=== PATIENT | female | born 1980 | race Caucasian/White ===

== ENCOUNTER 2017-09-15 10:27 | Observation (INO) ==
[2017-09-15] MEDS ORDERED: Ondansetron 4 MG/2 ML VIAL IVP PRN ×2 (11:04→18:07)
[2017-09-15] MEDS ORDERED: *HR* OxyCODONE/APAP 5/325 TABLET PO PRN ×2 (11:07→18:07)
[2017-09-15] MEDS ORDERED: Acetaminophen 325 MG TABLET PO PRN ×2 (11:07→18:07)
[2017-09-15] MEDS ORDERED: *HR* LORazepam 2 MG/ML VIAL IVP PRN ×2 (11:08→18:07)
--- NOTE | 2017-09-15 11:12 | General Surg History&Physical ---
Date of Encounter: 09/15/17 Time of Encounter: 10:45 Assessment and Plan (1) Acute appendicitis Current Visit: No Status: Acute The assessment and plan as outlined above was discussed with the patient and/or family members who expressed understanding and agreement. All questions were answered. NPO IV fluids- 75ml/hour IV antibiotics- Zosyn Supportive care and pain control Incentive Spirometer every 1 hour while awake Risks, benefits, alternatives, expected outcomes have been reviewed with the patient and she is in agreement to proceed with a laparoscopic appendectomy with Dr. Shane in the next 24 hours. Qualifiers: Acute appendicitis type: with localized peritonitis Qualified Code(s): K35.3 - Acute appendicitis with localized peritonitis (2) Anxiety and depression Current Visit: Yes Status: Chronic The assessment and plan as outlined above was discussed with the patient and/or family members who expressed understanding and agreement. All questions were answered. Ativan prn for anxiety while NPO Will resume home medication regimen after surgery (3) GERD (gastroesophageal reflux disease) Current Visit: Yes Status: Chronic The assessment and plan as outlined above was discussed with the patient and/or family members who expressed understanding and agreement. All questions were answered. PPI therapy daily Qualifiers: Esophagitis presence: esophagitis presence not specified Qualified Code(s) : K21.9 - Gastro-esophageal reflux disease without esophagitis (4) Asthma Current Visit: No Status: Chronic The assessment and plan as outlined above was discussed with the patient and/or family members who expressed understanding and agreement. All questions were answered. Duonebs every 6 hours prn shortness of breath IS every 1 hour while awake Qualifiers: Asthma severity: unspecified severity Asthma persistence: unspecified Asthma complication type: unspecified Qualified Code(s): J45.909 - Unspecified asthma, uncomplicated (5) DVT prophylaxis Current Visit: Yes Status: Acute The assessment and plan as outlined above was discussed with the patient and/or family members who expressed understanding and agreement. All questions were answered. EPCDs to bilateral lower extremities Ambulate hallways TID History of Present Illness Chief complaint: Abdominal pain HPI: Ms. Miranda is a 36 year old female who presented to the [place] emergency department with complaints of acute onset of right lower quadrant abdominal pain. She states that her pain started last evening. She states that the pain has slowly progressed and is now constant and severe. She describes it as a sharp and stabbing pain in her right lower quadrant and suprapubic region. She states that she has never had pain like this in the past. She denies any fevers or chills. She does admit to nausea and vomiting last evening. She denies any hematemesis or coffee-ground emesis. She admits to diarrhea last evening but denies any melena or hematochezia. She states that she is voiding without difficulty. She does admit to shortness of breath. She denies any chest pains. She has had a CAT scan evaluation which is consistent with acute appendicitis. The patient has been transferred to [facility] for further treatment. Past Med Surg Social Fam HX - Past Medical History Source: patient Medical history: asthma, GERD Psychiatric history: anxiety, depression - Past Surgical History Surgical History: , hysterectomy, JANIS/BSO, other (Laparoscopy, eardrum reconstruction; tubal ligation) - Social History Smoking Status: Never smoker Smokeless Tobacco Status: No Alcohol use: none Drug use: none Current living situation: Home - Independent Activity Level: Independent ambulation - Family History Mother Living Status: Still Living Hx Family Cardiac Disorders: Yes (HTN) Hx Family Endocrine Disorder: Yes (Diabetes) Hx Family Neurologic Disorders: Yes (CVA) Father Living Status: Still Living Hx Family Cardiac Disorders: Yes (HTN) Sister Living Status: Still Living Hx Family Cardiac Disorders: Yes (HTN) Hx Family Endocrine Disorder: Yes (Diabetes, Thyroid disease) Medications and Allergies Loratadine [Allergy Relief] 10 mg PO DAILY 01/02/17 [History] Gabapentin [Gralise] 300 mg PO DAILY 03/20/17 [History] Omeprazole [PriLOSEC] 20 mg PO DAILY 05/04/17 [History] clonazePAM [Klonopin] 0.5 mg PO BID 05/04/17 [History] Albuterol Sulfate [Ventolin Hfa] 2 puff IH QID 09/15/17 [History] Amoxicillin/Clavulanate [Augmentin] 1 tab PO BID 09/15/17 [History] Benzonatate [Tessalon] 1 cap PO TID PRN 09/15/17 [History] PARoxetine HCl [Paroxetine HCl] 20 mg PO DAILY 09/15/17 [History] 3 Allergy/AdvReac Type Severity Reaction Status Date / Time No Known Allergies Allergy Verified 09/09/17 13:42 Review of Systems All systems PM: reviewed and no additional remarkable complaints except as stated (in the HPI) All systems PM: A 10-system review of systems was performed and is negative for pertinent findings except as documented above in the HPI. General Surgery Exam Initial Vital Signs Temp Pulse Resp BP Pulse Ox 97.9 F 69 18 111/71 98 09/15/17 10:29 09/15/17 10:29 09/15/17 10:29 09/15/17 10:29 09/15/17 10:29 - General physical appearance well developed, well nourished, no distress - Eyes normal ocular movement - ENT normal mucosa, atraumatic, normocephalic - Neck trachea midline - Respiratory normal respiratory effort, clear to auscultation - Cardiovascular Cardiovascular exam: Present: RRR - Abdomen Abdomen general surgery: Present: bowel sounds present, soft, tender Abdominal Tenderness: Present: RLQ, suprapubic - Integumentary Integumentary general surgery: Present: warm and dry - Neurologic Present: CN 2-12 grossly intact - Psychiatric Psychiatric general surgery: Present: appropriate, oriented to person, oriented to place, oriented to time, speech is normal, memory intact Results - Labs All other labs normal. - Imaging CT scan - abdomen: report reviewed CT scan - pelvis: report reviewed - Attending Attestation For this encounter, I have reviewed the [place] or PA documentation, treatment plan, and medical decision making; and I have had face to face time with this patient.
[2017-09-15] MEDS ORDERED: 0.9 % Sodium Chloride 1,000 ML IVC SCH ×2 (11:15→18:07)
[2017-09-15] MEDS ORDERED: Ipratropium/Albuterol Neb 3 ML IH PRN ×2 (11:16→22:00)
[2017-09-15] MEDS ORDERED: Piperacillin/Tazobactam 3.375 GM in Water for inj. (sterile) 20 ML IVP ONE (11:21)
[2017-09-15] MEDS ORDERED: *HR* HYDROmorphone 2 MG/ML SYRINGE ONE (11:24)
[2017-09-15] MEDS: *HR* HYDROmorphone (PF) 1 MG/ML SYRINGE IVP PRN ×2 (11:28→15:02)
[2017-09-15] MEDS ORDERED: Piperacillin/Tazobactam 3.375 GM/200 ML BAG IVPB SCH (12:00)
--- NOTE | 2017-09-15 15:47 | Anesthesia Evaluation PreOp ---
Date of Encounter: 09/15/17 Time of Encounter: 16:16 - Past History Planned Operation: Laparoscopic Appendectomy Cardiac History: Denies any Significant Hx Pulmonary History: Asthma CAN REPAIRER History: Denies Any Significant HX Other Medical History: GERD, Other (anxiety/depression) Anesthesia History: No Prior Anesthetic Complications, Past Anesthesia ( hysterectomy) Alcohol Use: none Drug use: none Medications and Allergies Loratadine [Allergy Relief] 10 mg PO DAILY 01/02/17 [History] Gabapentin [Gralise] 300 mg PO DAILY 03/20/17 [History] Omeprazole [PriLOSEC] 20 mg PO DAILY 05/04/17 [History] clonazePAM [Klonopin] 0.5 mg PO BID 05/04/17 [History] Albuterol Sulfate [Ventolin Hfa] 2 puff IH QID 09/15/17 [History] Amoxicillin/Clavulanate [Augmentin] 1 tab PO BID 09/15/17 [History] Benzonatate [Tessalon] 1 cap PO TID PRN 09/15/17 [History] PARoxetine HCl [Paroxetine HCl] 20 mg PO DAILY 09/15/17 [History] 3 Allergy/AdvReac Type Severity Reaction Status Date / Time No Known Allergies Allergy Verified 09/09/17 13:42 - Meds/Allergy Pre-op Review Medications Reviewed: Yes Allergies Reviewed: Yes Beta Blockers on Current Med List: No Anesthesia Results - Labs Laboratory Tests 09/15/17 09/15/17 08:16 08:16 WBC 16.0 H Hgb 11.8 Hct 35.7 Plt Count 310 Sodium 139 Potassium 3.4 L BUN 8 Creatinine 0.78 Anesthesia Exam Vital Signs/O2 Sat, Most Current Temp Pulse Resp BP Pulse Ox 97.5 F L 61 18 107/69 93 09/15/17 14:37 09/15/17 14:37 09/15/17 14:37 09/15/17 14:37 09/15/17 14:37 Height: 5'4''/1.63 m Weight: 169 lbs/77.1 kg NPO (# of Hours): 8 Pain Scale: 3 Pain Scale Used: Numeric (1 - 10) - HEENT Pupil (Motor): EOMI Mallampati: II Teeth: Normal Oral Opening: Greater than 3 - CAN REPAIRER LOC: Oriented CAN REPAIRER Motor: Normal RUE, Normal LUE, Normal RLE, Normal LLE, Normal Face CAN REPAIRER Sensory: Normal: RUE, LUE, RLE, LLE, Face - Cardiac Rhythm: Regular Murmur: None - Pulmonary Breath Sounds: bilateral Clear Respiratory Effort: Symmetrical Anesthesia Assess/Plan ASA Score: 2 Modified Stephanie Scale for Level of Consciousness: Cooperative, oriented, and tranquil Anesthetic Plan: General Monitoring Plan: Standard Monitors Recovery Plan: PACU
[2017-09-15] MEDS ORDERED: Lidocaine -MPF 2% 2 ML VIAL ONE (17:02)
[2017-09-15] MEDS ORDERED: *HR* Midazolam HCl 2 MG/2 ML VIAL ONE (17:02)
[2017-09-15] MEDS ORDERED: Dexamethasone 4 MG/ML VIAL ONE (17:02)
[2017-09-15] MEDS ORDERED: *HR* Propofol 200 MG/20 ML VIAL IVP ONE (17:02)
[2017-09-15] MEDS ORDERED: *HR* FentaNYL (PF) 100 MCG/2 ML VIAL ONE (17:02)
[2017-09-15] MEDS ORDERED: Lidocaine -MPF 4% 5 ML AMPUL ONE (17:02)
[2017-09-15] MEDS ORDERED: *HR* Rocuronium Bromide 50 MG/5 ML VIAL ONE (17:02)
[2017-09-15] MEDS ORDERED: Ondansetron 4 MG/2 ML VIAL ONE (17:02)
[2017-09-15] MEDS ORDERED: Ketorolac 30 MG/ML VIAL ONE (17:13)
[2017-09-15] MEDS ORDERED: Neostigmine Methylsulfate 3 MG/3 ML SYRINGE ONE (17:15)
--- NOTE | 2017-09-15 17:27 | Operative Note ---
Date of procedure: 09/15/17 Pre-op diagnosis: appendicitis Post-op diagnosis: same Procedure: Laparoscopic appendectomy Anesthesia: GETA Surgeon: Miky Shane Was there an human resources assistant present: No Estimated blood loss (cc): 20 Specimen: appendix Condition: stable Disposition: same day
[2017-09-15] MEDS ORDERED: *HR* Promethazine 25 MG/ML VIAL IVP PRN (17:38)
[2017-09-15] MEDS ORDERED: *HR* Labetalol 20 MG/4 ML SYRINGE IVP PRN (17:38)
[2017-09-15] MEDS ORDERED: *HR* HYDROmorphone (PF) 1 MG/ML SYRINGE IVP PRN ×2 (17:38→18:07)
--- NOTE | 2017-09-15 18:09 | Anesthesia Evaluation Post Op ---
Date of Encounter: 09/15/17 Time of Encounter: 18:08 - Vital Signs Vital Signs: Vital Signs/O2 Sat, Most Current Temp Pulse Resp BP Pulse Ox 97.2 F L 64 18 124/78 94 09/15/17 18:05 09/15/17 18:05 09/15/17 18:05 09/15/17 18:05 09/15/17 18:05 - Lungs Lungs: Clear Ascult./Percussion - Airway Airway: Non-obstructed - Cardiovascular Regular Rate - Mental Status Mental Status: Asleep with brisk response to light stimulation - Pain Pain Scale: 3 Pain Scale used: Numeric (1 - 10) - Nausea Vomiting Nausea Vomiting: Not Present - Hydration Hydration: NPO, Has not voided - Discharge PostOp Status: Transfer Patient to floor
[2017-09-15] MEDS: Piperacillin/Tazobactam 3.375 GM/200 ML BAG IVPB SCH (19:45)
[2017-09-16] MEDS: Piperacillin/Tazobactam 3.375 GM/200 ML BAG IVPB SCH (04:51)
[2017-09-16 07:56] VITALS: BP 96/57
--- NOTE | 2017-09-16 09:36 | Discharge Summary ---
Date of Encounter: 09/16/17 Time of Encounter: 09:20 - Discharge Diagnosis (1) Acute appendicitis Priority: Primary Status: Resolved Qualifiers: Acute appendicitis type: with localized peritonitis Qualified Code(s): K35.3 - Acute appendicitis with localized peritonitis (2) Anxiety and depression Priority: Secondary Status: Chronic (3) GERD (gastroesophageal reflux disease) Priority: Secondary Status: Chronic Qualifiers: Esophagitis presence: esophagitis presence not specified Qualified Code(s) : K21.9 - Gastro-esophageal reflux disease without esophagitis (4) Asthma Priority: Secondary Status: Chronic Qualifiers: Asthma severity: unspecified severity Asthma persistence: unspecified Asthma complication type: unspecified Qualified Code(s): J45.909 - Unspecified asthma, uncomplicated (5) DVT prophylaxis Priority: Secondary Status: Acute - Discharge Medications Prescriptions: OxyCODONE/APAP 5/325 [Percocet 5/325 MG] 1 each PO Q4HR PRN #30 tablet PRN Reason: Moderate Pain Ibuprofen [Motrin] 800 mg PO Q8HR #40 tablet Docusate [Colace] 100 mg PO BID #30 capsule Home Medications: Loratadine [Allergy Relief] 10 mg PO DAILY 01/02/17 [History] Gabapentin [Gralise] 300 mg PO DAILY 03/20/17 [History] Omeprazole [PriLOSEC] 20 mg PO DAILY 05/04/17 [History] clonazePAM [Klonopin] 0.5 mg PO BID 05/04/17 [History] Albuterol Sulfate [Ventolin Hfa] 2 puff IH QID 09/15/17 [History] Amoxicillin/Clavulanate [Augmentin] 1 tab PO BID 09/15/17 [History] Benzonatate [Tessalon] 1 cap PO TID PRN 09/15/17 [History] PARoxetine HCl [Paroxetine HCl] 20 mg PO DAILY 09/15/17 [History] Docusate [Colace] 100 mg PO BID #30 capsule 09/16/17 [Rx] Ibuprofen [Motrin] 800 mg PO Q8HR #40 tablet 09/16/17 [Rx] OxyCODONE/APAP 5/325 [Percocet 5/325 MG] 1 each PO Q4HR PRN #30 tablet 09/16/17 [Rx] Allergies/Adverse Reactions: 3 Allergy/AdvReac Type Severity Reaction Status Date / Time No Known Allergies Allergy Verified 09/09/17 13:42 General Surgery Exam Initial Vital Signs Temp Pulse Resp BP Pulse Ox 97.9 F 69 18 111/71 98 09/15/17 10:29 09/15/17 10:29 09/15/17 10:29 09/15/17 10:29 09/15/17 10:29 - General physical appearance well developed, well nourished, no distress - Eyes normal ocular movement - ENT normal mucosa, atraumatic, normocephalic - Neck trachea midline - Respiratory normal respiratory effort, clear to auscultation - Cardiovascular Cardiovascular exam: Present: RRR - Abdomen Abdomen general surgery: Present: bowel sounds present, soft, tender (Expected postoperative tenderness) - Incision Incision: Present: clean and dry, intact - Integumentary Integumentary general surgery: Present: warm and dry - Neurologic Present: CN 2-12 grossly intact - Musculoskeletal Present: normal gait, normal posture - Psychiatric Psychiatric general surgery: Present: appropriate, oriented to person, oriented to place, oriented to time, speech is normal, memory intact Date of admission: 09/15/17 11:28 Primary care physician: Derek Cintron CNP Discharging clinician: Miky Shane (Trudi Ace) Anticipated date of discharge: 09/16/17 - Patient Status Disposition: Home, Self-Care Condition: Good Functional capacity at discharge: independent ambulation Overall status at discharge: patient is progressing back to baseline - Discharge Instructions Follow Up With: Derek Cintron CNP [Primary Care Provider] - Marleen Ace CNP [Advanced Practice Nurse] - 10/05/17 2:45 pm (surgery follow-up) Forms: ED Satisfaction Letter, Work/School Release Additional Instructions: #1 may shower, no tub bath for 2 weeks #2 wash incisions with soap and water and pat dry daily #3 no lifting, pushing, pulling more than 15 pounds for the next 2 weeks #4 no driving until off narcotics for 24 hours and able to safely react in the car #5 may climb stairs - Diet and Activity Activity: increase activity as tolerated Diet: advance to your usual diet - Hospital Course Hospital course: Ms. Miranda is a 36 year old female who presented to the emergency room with complaints of acute onset of abdominal pain. She did have a CAT scan which shows evidence of acute appendicitis. The patient was admitted to the hospital and started on IV antibiotics and supportive measures. She was taken to the operating room for laparoscopic appendectomy with Dr. Shane. On postoperative day #1, her preoperative pain has resolved. Her vital signs are stable and she is afebrile. She is tolerating a diet without nausea or vomiting. She is voiding and ambulating without difficulty. We will begin discharge planning to home and plan for outpatient follow-up in the next 10-14 days. - Time Spent with Patient Total time spent providing and/or coordinating discharge services: Less than 30 minutes Labs on day of discharge: Labs from last 24 hours 09/15/17 12:04 POC Glucose 99 H - Attending Attestation For this encounter, I have reviewed the [place] [facility] or PA documentation, treatment plan, and medical decision making; and I have had face to face time with this patient.
== END 2017-09-16 11:19 | disposition home or self-care (01) ==
LOC: 3ANU 10:27 → EMEROO 10:27 → 3ANU 12:05
PROVIDERS: ADMIT Surgery; ATTEND Surgery